=== PATIENT | male | born 1945 | race Caucasian/White ===

== ENCOUNTER 2017-11-17 07:20 | Day surgery (SDC) | payer MEDICARE, OTHER ==
[2017-11-17] MEDS: Polymyxin B/Trimethoprim 10 ML Bottle EYELF SCH ×4 (07:44→09:45)
[2017-11-17] MEDS: Brimonidine 0.2% Ophth Soln 5 ML Bottle EYELF SCH ×4 (07:50→09:45)
[2017-11-17] MEDS: Phenylephrine 2.5% Ophth Soln 2 ML Bot EYELF SCH ×6 (07:55→09:26)
--- NOTE | 2017-11-17 08:14 | PCM.PREANE ---
Preanesthetic Assessment - Procedure Proposed Procedure: Left Eye Cataract with Implant - Anesthesia/Transfusion/Family Hx Anesthesia History: Prior Anesthesia Without Reaction Family History of Anesthesia Reaction: No Transfusion History: No Prior Transfusion(s) - Review of Systems General: No Symptoms Pulmonary: No Symptoms Cardiovascular: Other (history of heart attack ) Gastrointestinal: No Symptoms Neurological: No Symptoms Other: Reports: None - Physical Assessment NPO Status Date: 11/16/17 NPO Status Time: 22:00 Pulse: 45 O2 Sat by Pulse Oximetry: 97 Respiratory Rate: 16 Vital Signs: Last Vital Signs Temp 36.1 C 11/17/17 07:35 Pulse 45 L 11/17/17 07:35 Resp 16 11/17/17 07:35 BP 129/69 11/17/17 07:35 Pulse Ox 97 11/17/17 07:35 Weight: 90.718 kg ASA Class: 2 Mental Status: Alert & Oriented x3 Airway Class: Mallampati = 3 Dentition: Reports: Normal Dentition Thyro-Mental Finger Breadths: 3 Mouth Opening Finger Breadths: 5 ROM/Head Extension: Full Lungs: Clear to Auscultation, Normal Respiratory Effort Cardiovascular: Regular Rate, Regular Rhythm - Allergies Allergies/Adverse Reactions: Allergies Allergy/AdvReac Type Severity Reaction Status Date / Time No Known Allergies Allergy Verified 11/14/17 16:08 - Blood Blood Available: No - Anesthesia Plan Pre-Op Medication Ordered: None - Acknowledgements Anesthesia Type Planned: MAC Pt an Appropriate Candidate for the Planned Anesthesia: Yes Alternatives and Risks of Anesthesia Discussed w Pt/Guardian: Yes Pt/Guardian Understands and Agrees with Anesthesia Plan: Yes PreAnesthesia Questionnaire Cardiovascular History: Reports: High Cholesterol, Stents - HOME MEDS Home Medications: Home Meds Aspirin [Halfprin] 81 mg PO DAILY 11/16/17 [History] Rosuvastatin Calcium [Rosuvastatin Calcium] 5 mg PO DAILY 11/16/17 [History] - CURRENT (IN HOUSE) MEDS Current Meds: Current Medications Brimonidine Tartrate (Alphagan 0.2% Ophth Soln) 0 ml EYELF ASDIRECTED ROSEANNA Stop: 11/17/17 18:00 Last Admin: 11/17/17 07:50 Dose: 1 drop Cefuroxime Sodium (Zinacef) 0 mg EYELF ASDIRECTED ROSEANNA Stop: 11/17/17 18:00 Lidocaine HCl (Xylocaine-Mpf 1%) 10 ml INJECT ASDIRECTED ROSEANNA Stop: 11/17/17 18:00 Phenylephrine HCl (Cecil-Synephrine 2.5% Ophth Soln) 0 ml EYELF ASDIRECTED ROSEANNA Stop: 11/17/17 18:00 Last Admin: 11/17/17 08:02 Dose: 1 drop Pilocarpine HCl (Pilocar 4% Ophth Soln) 0 ml EYELF ASDIRECTED ROSEANNA Stop: 11/17/17 18:00 Polymyxin/Trimethoprim Sulfate (Polytrim Ophth Soln) 0 ml EYELF ASDIRECTED ROSEANNA Stop: 11/17/17 18:00 Last Admin: 11/17/17 07:44 Dose: 1 drop Tetracaine HCl (Tetracaine 0.5% Steri-Unit Sendy) 0 ml EYELF ASDIRECTED ROSEANNA Stop: 11/17/17 18:00 Tropicamide (Mydriacyl 1% Ophth Soln) 0 ml EYELF ASDIRECTED ROSEANNA Stop: 11/17/17 18:00 Last Admin: 11/17/17 08:07 Dose: 1 drop
[2017-11-17] MEDS: Lidocaine 1% PF 2 ML SDV INJECT SCH ×2 (08:59→09:34)
[2017-11-17] MEDS: Cefuroxime 10 MG/ML SYRINGE EYELF SCH ×2 (09:00→09:44)
[2017-11-17] MEDS: Tetracaine HCl/PF 0.5% 4 ML Bottle EYELF SCH ×3 (09:00→09:34)
[2017-11-17] MEDS: Pilocarpine 4% Ophth Soln 15 ML Bot EYELF SCH ×2 (09:01→09:45)
--- NOTE | 2017-11-17 09:48 | PCM48HPAN ---
Post Anesthesia Note - EVALUATION WITHIN 48HRS OF ANESTHETIC Vital Signs in Normal Range: Yes Patient Participated in Evaluation: Yes Respiratory Function Stable: Yes Airway Patent: Yes Cardiovascular Function Stable: Yes Hydration Status Stable: Yes Pain Control Satisfactory: Yes Nausea and Vomiting Control Satisfactory: Yes Mental Status Recovered: Yes Pulse Rate: 45 SaO2: 99 Resp Rate: 16 Blood Pressure: 128/82
== END 2017-11-17 09:55 | disposition home or self-care (01) ==
LOC: JD.SDS 07:20
PROVIDERS: ATTEND Ophthalmology
DX: H25.813 Combined forms of age-related cataract, bilateral (principal); H43.813 Vitreous degeneration, bilateral; H43.393 Other vitreous opacities, bilateral; H35.373 Puckering of macula, bilateral; E78.00 Pure hypercholesterolemia, unspecified; I51.9 Heart disease, unspecified; Z95.5 Presence of coronary angioplasty implant and graft; Z79.82 Long term (current) use of aspirin; Z79.899 Other long term (current) drug therapy
CPT/HCPCS: 66984; C1780; J0697; A9270-GY

== ENCOUNTER 2019-06-27 15:53 | Emergency (ER) | payer MEDICARE, OTHER ==
--- NOTE | 2019-06-27 16:28 | EDM.PDOC ---
ED HPI GENERAL MEDICAL PROBLEM - General Chief Complaint: Chest Pain Stated Complaint: CHEST PAIN Time Seen by Provider: 06/27/19 16:01 Source of Information: Reports: Patient, RN Notes Reviewed History Limitations: Reports: No Limitations - History of Present Illness INITIAL COMMENTS - FREE TEXT/NARRATIVE: Patient is a 74-year-old male who presents to the ED for the evaluation of upper right-sided chest discomfort. The patient notes that he try to go to the walk-in clinic for evaluation, but however due to his cardiac history he was deferred to the ER for management. Patient notes that he had stents placed in his circumflex artery roughly 7 years ago, his middle school tutor is Dr. Cota, and his primary care physician is Marcos Martínez. The patient notes that he developed this right-sided chest discomfort that radiates to his back and right arm last night after he ate supper. The patient states that he had a breaded chicken sandwich from [employer]. He states that he feels discomfort when he tries to take a deep breath, and that the pain worsens with movements, and when he lays directly on his right side. The patient states that he does not remember or recall any trauma that he had to this area. He notes some issues with back pain chronically, and he is been trying some stretching exercises given to him by physical therapy for this. At the walk-in clinic the patient was told he had a fever of 100.6F, he is afebrile at our visit with a temperature of 98.5 F. The patient states he feels hot and cold, has general malaise, has nausea but no vomiting or diarrhea. Patient states he took 200 mg of ibuprofen 2 hours prior to arrival, this seemed to help give pretty good relief. When asked to describe the pain patient states that it just hurts, and he can't really describe it. He notes that it feels as if it is a deep discomfort. Right Upper Chest Pain Score (Numeric/FACES): 9 - Related Data Allergies Allergy/AdvReac Type Severity Reaction Status Date / Time No Known Allergies Allergy Verified 06/27/19 16:04 Home Meds: Home Meds Aspirin [Halfprin] 81 mg PO DAILY 11/16/17 [History] Azithromycin 250 mg PO DAILY #6 tablet 06/27/19 [Rx] Gluc/Jose-Msm#2/C/D3/Cipriano/Born [Evwpxyrppw-Pewfxhdyimp-SFK] 1 each PO DAILY 11/14 [History] Losartan [Cozaar] 50 mg PO DAILY 06/27/19 [History] Lutein 0 mg PO DAILY 06/27/19 [History] Magnesium 0 mg PO DAILY 06/27/19 [History] Multivitamin [Daily Johnnie] 1 each PO DAILY 06/27/19 [History] Past Medical History HEENT History: Reports: Impaired Vision Cardiovascular History: Reports: High Cholesterol, Hypertension, [place], Stents Other Cardiovascular History: Cardiac Stents x2. Respiratory History: Reports: None Gastrointestinal History: Reports: None Genitourinary History: Reports: None Musculoskeletal History: Reports: None Neurological History: Reports: None Psychiatric History: Reports: None Endocrine/Metabolic History: Reports: None Hematologic History: Reports: None Immunologic History: Reports: None Oncologic (Cancer) History: Reports: None Dermatologic History: Reports: None - Infectious Disease History Infectious Disease History: Reports: None - Past Surgical History Head Surgeries/Procedures: Reports: None HEENT Surgical History: Reports: Oral Surgery Cardiovascular Surgical History: Reports: Coronary Artery Stent (circumflex stents (2012)) GI Surgical History: Reports: Appendectomy Social & Family History - Tobacco Use Smoking Status *Q: Never Smoker - Caffeine Use Caffeine Use: Reports: Coffee - Recreational Drug Use Recreational Drug Use: No ED ROS GENERAL - Review of Systems Review Of Systems: See Below Constitutional: Reports: Fever, Chills, Malaise HEENT: Reports: No Symptoms Respiratory: Denies: Shortness of Breath Cardiovascular: Reports: Chest Pain (R side chest discomfort) Endocrine: Reports: No Symptoms GI/Abdominal: Reports: Nausea. Denies: Abdominal Pain, Constipation, Diarrhea, Vomiting : Reports: No Symptoms Musculoskeletal: Reports: No Symptoms Skin: Reports: No Symptoms Neurological: Reports: No Symptoms Psychiatric: Reports: No Symptoms Hematologic/Lymphatic: Reports: No Symptoms Immunologic: Reports: No Symptoms ED EXAM, GENERAL - Physical Exam Exam: See Below Exam Limited By: No Limitations General Appearance: Alert, WD/WN, No Apparent Distress Eye Exam: Bilateral Eye: EOMI, Normal Inspection, PERRL Ears: Normal External Exam Throat/Mouth: Normal Inspection, Normal Lips, Normal Teeth, Normal Gums, Normal Oropharynx, Normal Voice, No Airway Compromise Head: Atraumatic, Normocephalic Neck: Normal Inspection, Supple, Non-Tender, Full Range of Motion Respiratory/Chest: No Respiratory Distress, Lungs Clear, Normal Breath Sounds, No Accessory Muscle Use, Chest Non-Tender, Other (The patient states that his pain worsens when he takes deep breaths during exam) Cardiovascular: Normal Peripheral Pulses, Regular Rate, Rhythm, No Murmur Peripheral Pulses: 3+: Radial (L), Radial (R) GI/Abdominal: Normal Bowel Sounds, Soft, Non-Tender, No Distention, No Mass Back Exam: Normal Inspection, Full Range of Motion, CVA Tenderness (R) Extremities: Normal Inspection, Normal Range of Motion, Normal Capillary Refill Neurological: Alert, Oriented, Normal Cognition, No Motor/Sensory Deficits Psychiatric: Normal Affect, Normal Mood Skin Exam: Warm, Dry, Intact, Normal Color, No Rash EKG INTERPRETATION EKG Date: 06/27/19 Time: 15:58 Rhythm: NSR Rate (Beats/Min): 65 Magazine: Normal P-Wave: Present () QRS: Normal () ST-T: Normal QT: Normal Comparison: NA - No Prior EKG EKG Interpretation Comments: Reviewed by Dr. Andersen and myself. No acute changes noted. Course - Vital Signs Last Recorded V/S: Last Vital Signs Temp 98.5 F 06/27/19 16:00 Pulse 63 06/27/19 16:00 Resp 16 06/27/19 16:00 BP 162/86 H 06/27/19 16:00 Pulse Ox 93 L 06/27/19 16:00 - Orders/Labs/Meds Orders: Active Orders 24 hr Category Date Time Status EKG Documentation Completion [RC] STAT Care 06/27/19 16:02 Ordered Influenza Vaccine Charge [RC] .DISCHARGE Care 06/27/19 16:09 Active Labs: Laboratory Tests 06/27/19 06/27/19 06/27/19 Range/Units 16:00 16:00 16:00 WBC 11.07 H (4.23-9.07) K/mm3 RBC 4.89 (4.63-6.08) M/mm3 Hgb 14.4 (13.7-17.5) gm/dl Hct 42.0 (40.1-51.0) % MCV 85.9 (79.0-92.2) fl MCH 29.4 (25.7-32.2) pg MCHC 34.3 (32.2-35.5) g/dl RDW Std Deviation 38.1 (35.1-43.9) fL Plt Count 129 L (163-337) K/mm3 MPV 9.6 (9.4-12.3) fl Neutrophils % (Manual) 75 H (40-60) % Band Neutrophils % 1 (0-10) % Lymphocytes % (Manual) 13 L (20-40) % Atypical Lymphs % 0 % Monocytes % (Manual) 11 H (2-10) % Eosinophils % (Manual) 0 L (0.8-7.0) % Basophils % (Manual) 0 L (0.2-1.2) Platelet Estimate Decreased Plt Morphology Comment See note RBC Morph Comment Normal PT 11.4 (9.7-12.0) SECONDS INR 1.05 APTT 26 (22-31) SECONDS Sodium 136 (136-145) mEq/L Potassium 4.0 (3.5-5.1) mEq/L Chloride 100 (98-107) mEq/L Carbon Dioxide 24 (21-32) mEq/L Anion Gap 16.0 H (5-15) BUN 17 (7-18) mg/dL Creatinine 1.4 H (0.7-1.3) mg/dL Est Cr Clr Drug Dosing 47.07 mL/min Estimated GFR (MDRD) 49 (>60) mL/min BUN/Creatinine Ratio 12.1 L (14-18) Glucose 120 H (83-115) mg/dL Calcium 9.1 (8.5-10.1) mg/dL Magnesium 1.8 (1.8-2.4) mg/dl Total Bilirubin 2.1 H (0.2-1.0) mg/dL GGT 15 (15-85) U/L AST 14 L (15-37) U/L ALT 18 (16-63) U/L Alkaline Phosphatase 63 (46-116) U/L Troponin I < 0.017 (0.00-0.056) ng/mL NT-Pro-B Natriuret Pep (0-450) pg/mL Total Protein 7.6 (6.4-8.2) g/dl Albumin 4.0 (3.4-5.0) g/dl Globulin 3.6 gm/dL Albumin/Globulin Ratio 1.1 (1-2) Urine Color (Yellow) Urine Appearance (Clear) Urine pH (5.0-8.0) Ur Specific Fithian (1.005-1.030) Urine Protein (Negative) Urine Glucose (UA) (Negative) Urine Ketones (Negative) Urine Occult Blood (Negative) Urine Nitrite (Negative) Urine Bilirubin (Negative) Urine Urobilinogen (0.2-1.0) Ur Leukocyte Esterase (Negative) Urine RBC (0-5) /hpf Urine WBC (0-5) /hpf Ur Squamous Epith Cells (0-5) /hpf Urine Bacteria (FEW) /hpf Urine Mucus (FEW) /hpf 06/27/19 06/27/19 Range/Units 16:00 17:22 WBC (4.23-9.07) K/mm3 RBC (4.63-6.08) M/mm3 Hgb (13.7-17.5) gm/dl Hct (40.1-51.0) % MCV (79.0-92.2) fl MCH (25.7-32.2) pg MCHC (32.2-35.5) g/dl RDW Std Deviation (35.1-43.9) fL Plt Count (163-337) K/mm3 MPV (9.4-12.3) fl Neutrophils % (Manual) (40-60) % Band Neutrophils % (0-10) % Lymphocytes % (Manual) (20-40) % Atypical Lymphs % % Monocytes % (Manual) (2-10) % Eosinophils % (Manual) (0.8-7.0) % Basophils % (Manual) (0.2-1.2) Platelet Estimate Plt Morphology Comment RBC Morph Comment PT (9.7-12.0) SECONDS INR APTT (22-31) SECONDS Sodium (136-145) mEq/L Potassium (3.5-5.1) mEq/L Chloride (98-107) mEq/L Carbon Dioxide (21-32) mEq/L Anion Gap (5-15) BUN (7-18) mg/dL Creatinine (0.7-1.3) mg/dL Est Cr Clr Drug Dosing mL/min Estimated GFR (MDRD) (>60) mL/min BUN/Creatinine Ratio (14-18) Glucose (83-115) mg/dL Calcium (8.5-10.1) mg/dL Magnesium (1.8-2.4) mg/dl Total Bilirubin (0.2-1.0) mg/dL GGT (15-85) U/L AST (15-37) U/L ALT (16-63) U/L Alkaline Phosphatase (46-116) U/L Troponin I (0.00-0.056) ng/mL NT-Pro-B Natriuret Pep 187 (0-450) pg/mL Total Protein (6.4-8.2) g/dl Albumin (3.4-5.0) g/dl Globulin gm/dL Albumin/Globulin Ratio (1-2) Urine Color Yellow (Yellow) Urine Appearance Clear (Clear) Urine pH 7.0 (5.0-8.0) Ur Specific Fithian 1.020 (1.005-1.030) Urine Protein Negative (Negative) Urine Glucose (UA) Negative (Negative) Urine Ketones 1+ H (Negative) Urine Occult Blood Negative (Negative) Urine Nitrite Negative (Negative) Urine Bilirubin Negative (Negative) Urine Urobilinogen 1.0 (0.2-1.0) Ur Leukocyte Esterase Negative (Negative) Urine RBC 0-5 (0-5) /hpf Urine WBC 0-5 (0-5) /hpf Ur Squamous Epith Cells 0-5 (0-5) /hpf Urine Bacteria Few (FEW) /hpf Urine Mucus Few (FEW) /hpf Meds: Medications Discontinued Medications Generic Name Dose Route Start Last Admin Trade Name Freq PRN Reason Stop Dose Admin Influenza Virus Vaccine 1 each 06/27/19 16:09 Pharmacy To Dose - Influenza Vaccine IM 06/27/19 16:10 ONETIME ONE Influenza Virus Vaccine 180 mcg 06/27/19 16:15 Fluzone High-Dose 2019-20 Syringe IM 06/27/19 16:16 .ONCE ONE - Re-Assessments/Exams Free Text/Narrative Re-Assessment/Exam: 06/27/19 16:35 Patient presents to the ED for the evaluation of right sided chest pain. Have ordered EKG, CXR, Trop, mag, BNP, CBC, CMP, GGT, PTT, PT/INR, UA for initial evaluation d/t cardiac history. EKG looks good with no acute changes noted by Dr. Andersen or myself. 06/27/19 17:03 Chest x-ray is done, and demonstrates a parenchymal density within the right lung base, differential includes pneumonia versus atelectasis. Minimal atelectasis within the left base, and a tortuous thoracic aorta. 06/27/19 18:06 Patient's labs are done, and demonstrate a mildly elevated white blood cell count at 11,000 with 75% neutrophils and 1 band. Metabolic panel is essentially normal. Trop is negative, GGT is WNL, UA looks good. Will discharge home with course of Azithromycin for pneumonia. Departure - Departure Time of Disposition: 18:12 Disposition: Home, Self-Care 01 Condition: Fair Clinical Impression: Pneumonia Qualifiers: Pneumonia type: due to unspecified organism Laterality: right Lung location: lower lobe of lung Qualified Code(s): J18.1 - Lobar pneumonia, unspecified organism Instructions: Community-Acquired Pneumonia, Adult, [id number] Referrals: Marcos Martínez Jr, MD [Primary Care Provider] - Forms: ED Department Discharge Additional Instructions: You were evaluated in the ER today for your right-sided chest discomfort. Your laboratory evaluation revealed a mildly elevated white count, and your chest x-ray is suggestive of a pneumonia and this time. You were given a prescription for azithromycin, please take as directed. Your EKG was within normal limits, your heart enzymes were within normal limits , you are not having a heart attack at today's ER visit. Recommend that you follow up with your primary care provider after he finished a course of antibiotics to make sure that your symptoms are resolving. Please return to the ED if your symptoms should change or worsen. - My Orders Last 24 Hours: My Active Orders 06/27/19 16:02 EKG Documentation Completion [RC] STAT 06/27/19 16:09 Influenza Vaccine Charge [RC] .DISCHARGE - Assessment/Plan Last 24 Hours: My Active Orders 06/27/19 16:02 EKG Documentation Completion [RC] STAT 06/27/19 16:09 Influenza Vaccine Charge [RC] .DISCHARGE
--- NOTE | 2019-06-27 16:50 | CR ---
Chest: Portable view of the chest was obtained. Comparison: No previous study. Increased density at the right lung base. Minimal atelectasis is seen within the left base. Heart has a left ventricular configuration with tortuous thoracic aorta. Upper lungs are clear. Bony structures are grossly intact. Impression: 1. Parenchymal density within right lung base, differential includes pneumonia versus atelectasis. 2. Minimal atelectasis within the left base. 3. Other findings as noted above. Diagnostic code #3
== END 2019-06-27 18:24 | disposition home or self-care (01) ==
LOC: JD.ED 15:53
DX: J18.1 Lobar pneumonia, unspecified organism (principal); E78.00 Pure hypercholesterolemia, unspecified; I10 Essential (primary) hypertension; I25.2 Old myocardial infarction; Z95.5 Presence of coronary angioplasty implant and graft; Z79.899 Other long term (current) drug therapy; Z79.82 Long term (current) use of aspirin
CPT/HCPCS: 36415; 71045; 71045-26; 80053; 81001; 82977; 83735; 83880; 84484; 85007; 85027; 85610; 85730; 93005; 93010; 99283; 99285-25

== ENCOUNTER 2020-10-25 23:55 | Emergency (ER) | payer MEDICARE, OTHER ==
--- NOTE | 2020-10-26 00:38 | EDM.PDOC ---
ED HPI GENERAL MEDICAL PROBLEM - General Chief Complaint: Lower Extremity Injury/Pain Stated Complaint: BOTH LEGS HURT Time Seen by Provider: 10/26/20 00:28 - History of Present Illness INITIAL COMMENTS - FREE TEXT/NARRATIVE: 75-year-old male presents the emergency room with leg pain. This is been going on for weeks. Seems to be worse in the right side just above and just below his knee. He describes the sensations where he moves his leg unexpectedly. This is bothering him to the point where he is having difficulty sleeping. The patient does not necessarily give a pattern of having pain after he rests his joints but it seems to be sore all the time however it seems to improve some if he is been out walking for a while. He tries to stretch them out but this does not seem to help too much. He has not had any breathing difficulties or shortness of breath no chest pain chest pressure. Patient stays fairly active. He is concerned about the possibility of a blood clot. Bilateral Leg Pain Score (Numeric/FACES): 7 - Related Data Allergies Allergy/AdvReac Type Severity Reaction Status Date / Time No Known Allergies Allergy Verified 10/26/20 00:09 Home Meds: Home Meds Aspirin [Halfprin] 81 mg PO DAILY 11/16/17 [History] Azithromycin 250 mg PO DAILY #6 tablet 06/27/19 [Rx] Glucosam/Chond-MSM 2/C/D3/Cipriano [Ujtswcwkuy-Fkqvmyuhhpc-MLQ] 1 each PO DAILY 06/27/19 [History] Losartan [Cozaar] 50 mg PO DAILY 06/27/19 [History] Lutein 0 mg PO DAILY 06/27/19 [History] Magnesium 0 mg PO DAILY 06/27/19 [History] Multivitamin [Daily Johnnie] 1 each PO DAILY 06/27/19 [History] Past Medical History HEENT History: Reports: Impaired Vision Cardiovascular History: Reports: High Cholesterol, Hypertension, [place], Stents Other Cardiovascular History: Cardiac Stents x2. Respiratory History: Reports: None Gastrointestinal History: Reports: None Genitourinary History: Reports: None Musculoskeletal History: Reports: None Neurological History: Reports: None Psychiatric History: Reports: None Endocrine/Metabolic History: Reports: None Hematologic History: Reports: None Immunologic History: Reports: None Oncologic (Cancer) History: Reports: None Dermatologic History: Reports: None - Infectious Disease History Infectious Disease History: Reports: None - Past Surgical History Head Surgeries/Procedures: Reports: None HEENT Surgical History: Reports: Oral Surgery Cardiovascular Surgical History: Reports: Coronary Artery Stent GI Surgical History: Reports: Appendectomy Social & Family History - Tobacco Use Tobacco Use Status *Q: Never Tobacco User Second Hand Smoke Exposure: No - Caffeine Use Caffeine Use: Reports: None - Recreational Drug Use Recreational Drug Use: No Review of Systems - Review of Systems Review Of Systems: See Below Constitutional: Reports: No Symptoms Respiratory: Reports: No Symptoms Cardiovascular: Reports: No Symptoms Musculoskeletal: Reports: Other (See history of present illness) Skin: Reports: No Symptoms Neurological: Reports: No Symptoms ED EXAM, GENERAL - Physical Exam Exam: See Below Exam Limited By: No Limitations General Appearance: Alert, No Apparent Distress Head: Atraumatic, Normocephalic Respiratory/Chest: No Respiratory Distress, Lungs Clear, Normal Breath Sounds Cardiovascular: Regular Rate, Rhythm, No Edema, No Murmur Extremities: Other (Palpation of his lower legs for the most part unrevealing he has some significant arthritic changes around his right knee he has discomfort in the proximal calf and the distal thigh. But pressure over most the calf is nontender. ) Course - Vital Signs Last Recorded V/S: Last Vital Signs Temp 37.2 C 10/26/20 00:06 Pulse 52 L 10/26/20 00:06 Resp 16 10/26/20 00:06 BP 147/92 H 10/26/20 00:06 Pulse Ox 96 10/26/20 00:06 - Orders/Labs/Meds Labs: Laboratory Tests 10/26/20 Range/Units 01:00 D-Dimer, Quantitative 0.38 (0.19-0.50) mg/L Meds: Medications Discontinued Medications Generic Name Dose Route Start Last Admin Trade Name Freq PRN Reason Stop Dose Admin Acetaminophen 975 mg 10/26/20 00:48 10/26/20 01:02 Tylenol PO 10/26/20 00:49 975 mg NOW ONE Administration - Re-Assessments/Exams Free Text/Narrative Re-Assessment/Exam: 10/26/20 01:24 I like to check and x-ray of his knee however the patient is convinced is not coming from his knee. He is more worried about a blood clot we will check a D- dimer. We will also try him on 975 mg of Tylenol. 10/26/20 01:50 Patient is doing better after having a Tylenol. His D-dimer was unremarkable. Departure - Departure Time of Disposition: 01:50 Disposition: Home, Self-Care Clinical Impression: Right leg pain, Degenerative joint disease - Discharge Information Referrals: Marcos Martínez Jr, MD [Primary Care Provider] - Forms: ED Department Discharge Additional Instructions: Return to the emergency room with any questions problems or worsening symptoms. Follow-up with your regular physician discussed the possibilities of worsening arthritis, and restless leg syndrome. Take Tylenol, or acetaminophen 1000 mg 3-4 times a day. Sepsis Event Note (ED) - Evaluation Sepsis Screening Result: No Definite Risk - Focused Exam Vital Signs: Vital Signs Temp Pulse Resp BP Pulse Ox 10/26/20 00:06 37.2 C 52 L 16 147/92 H 96
[2020-10-26] MEDS ORDERED: Acetaminophen 325 MG Tab PO ONE (00:48)
== END 2020-10-26 02:00 | disposition home or self-care (01) ==
LOC: JD.ED 23:55
DX: M17.11 Unilateral primary osteoarthritis, right knee (principal); I10 Essential (primary) hypertension; I25.2 Old myocardial infarction; Z95.5 Presence of coronary angioplasty implant and graft; Z79.82 Long term (current) use of aspirin; Z79.899 Other long term (current) drug therapy
CPT/HCPCS: 36415; 85379; 99283; A9270

== ENCOUNTER 2025-03-22 10:49 | Emergency (ER) | payer MEDICARE, OTHER ==
[2025-03-22 11:14] LABS: BASOPHILS ABSOLUTE AUTO 0.1 K/mm3 (0.0-0.2); BASOPHILS PERCENT AUTO 0.7 % (0.0-1.0); EOSINOPHILS ABSOLUTE AUTO 0.1 K/mm3 (0.0-0.4); EOSINOPHILS PERCENT AUTO 1.5 % (0.0-6.0); HEMATOCRIT 45.3 % (42.0-52.0); HEMOGLOBIN 16.3 gm/dl (14.0-18.0); IMMATURE GRAN ABSOLUTE AUTO 0.02 K/mm3 (0.00-0.05); IMMATURE GRAN PERCENT AUTO 0.3 % (0.0-0.4); LYMPHOCYTES ABSOLUTE AUTO 1.8 K/mm3 (1.0-4.8); LYMPHOCYTES PERCENT AUTO 25.1 % (24.0-44.0); MEAN CORPUSCULAR HEMOGLOBIN 31.2 pg (28.0-32.0); MEAN CORPUSCULAR VOLUME 86.8 fl (83.0-99.0); MEAN PLATELET VOLUME 9.3 fl (9.4-12.4); MONOCYTES ABSOLUTE AUTO 0.9 K/mm3 (0.0-0.8); MONOCYTES PERCENT AUTO 12.8 % (0.0-8.0); NEUTROPHILS ABSOLUTE AUTO 4.2 K/mm3 (1.8-7.7); NEUTROPHILS PERCENT AUTO 59.6 % (41.0-71.0); PLATELET COUNT,PLT 159 K/mm3 (150-400); RED BLOOD CELL COUNT 5.22 M/mm3 (4.52-5.90)
[2025-03-22 11:37] LABS: INR 1.04
[2025-03-22 11:47] LABS: A/G RATIO 1.3 (1-2); ANION GAP 12.3 (5-15); BILIRUBIN TOTAL 1.1 mg/dL (0.2-1.0); BUN/CREATININE RATIO 15.7 (14-18); CREATININE 1.4 mg/dL (0.7-1.3); EST CRCL DRUG DOSING (CG) 42.08 mL/min; POTASSIUM,K 4.3 mEq/L (3.5-5.1); PROTEIN TOTAL,TP 7.2 g/dl (6.4-8.2)
== END 2025-03-22 14:57 | disposition home or self-care (01) ==
LOC: JD.ED 10:49
DX: I25.10 Atherosclerotic heart disease of native coronary artery without angina pectoris (principal); R79.89 Other specified abnormal findings of blood chemistry; I25.2 Old myocardial infarction; I10 Essential (primary) hypertension; Z90.49 Acquired absence of other specified parts of digestive tract; Z88.0 Allergy status to penicillin; Z79.82 Long term (current) use of aspirin; Z79.899 Other long term (current) drug therapy
CPT/HCPCS: 36415; 71045; 71045-26; 80053; 82550; 83690; 83735; 83880; 84484; 85025; 85610; 93005; 99285